=== PATIENT | male | born 2005 | race Caucasian/White ===

== ENCOUNTER 2024-09-04 12:07 | Emergency (ER) | payer OTHER ==
[~2024-09-04] VITALS: Ht 185.4 cm; Wt 68.0 kg
[2024-09-04] MEDS ORDERED: HOME MED LIST COMPLETE! XX SCH (14:00)
[2024-09-04 14:30] VITALS: BP 151/78
[2024-09-04 14:49] VITALS: TEMP 99.1; O2SAT 99
== END 2024-09-04 15:00 | disposition home or self-care (01) ==
LOC: M ED 12:07
DX: J93.9 Pneumothorax, unspecified (principal); R91.8 Other nonspecific abnormal finding of lung field

== ENCOUNTER 2024-09-06 06:31 | Emergency (ER) | payer OTHER ==
[~2024-09-06] VITALS: Ht 185.4 cm; Wt 65.8 kg
[2024-09-06] MEDS ORDERED: ZYRT10TA12 PO (07:19)
[2024-09-06 11:45] VITALS: BP 127/77; O2SAT 98
[2024-09-06] MEDS ORDERED: LIDO1ADH93 TOP (11:47)
[2024-09-06 11:52] VITALS: TEMP 97.7
== END 2024-09-06 11:58 | disposition home or self-care (01) ==
LOC: M ED 06:31
DX: J93.9 Pneumothorax, unspecified (principal); Z87.01 Personal history of pneumonia (recurrent); Z79.899 Other long term (current) drug therapy